=== PATIENT | male | born 1950 | race Caucasian/White ===

== ENCOUNTER 2024-11-01 14:18 | Emergency (ER) | payer OTHER ==
[~2024-11-01] VITALS: Ht 182.9 cm; Wt 86.0 kg
[2024-11-01 14:28] VITALS: BP 155/73; PULSE 68; RESP 18; TEMP 97.8; O2SAT 100
[2024-11-01 15:43] LABS: BASOPHILS % 0.8 % (0.0-2.0); EOSINOPHILS % 0.3 % (0.0-5.0); HEMOGLOBIN. 14.5 g/dL (14.0-18.0); LYMPHOCYTES % 30.9 % (20.0-50.0); MEAN CORPUSCULAR HEMOGLOBIN 29.7 pg (28.0-32.0); MEAN CORPUSCULAR HGB CONC 32.8 g/dL (31.0-37.0); MEAN CORPUSCULAR VOLUME 90.4 fL (80.0-94.0); MEAN PLATELET VOLUME 7.4 fl (7.4-10.4); MONOCYTES % 7.2 % (2.0-8.0); NEUTROPHILS % 60.8 % (40.0-76.0); PLATELET 288 x1000/uL (130-400); RED BLOOD CELL COUNT 4.87 mill/uL (4.7-6.1); RED CELL DISTRIBUTION WIDTH 13.1 % (11.6-14.6); WHITE BLOOD COUNT 7.1 x1000/uL (4.5-11.0)
[2024-11-01 15:53] LABS: CHLORIDE 105 mEq/L (98-107); POTASSIUM 4.1 mEq/L (3.5-5.1); SODIUM 139 mEq/L (136-145)
[2024-11-01 15:54] LABS: CALCIUM 9.8 mg/dL (8.7-10.4); CARBON DIOXIDE 26 mEq/L (21-32)
[2024-11-01 15:59] LABS: CREATININE 1.1 mg/dL (0.6-1.3); GLUCOSE 94 mg/dL (70-105); UREA NITROGEN BLOOD 15 mg/dL (9-23)
[2024-11-01 16:01] LABS: ALANINE AMINOTRANSFERASE 40 IU/L (10-49); ALBUMIN 4.4 g/dL (3.2-4.8); ASPARTATE AMINOTRANSFERASE 31 IU/L (<34); BILIRUBIN DIRECT 0.2 mg/dL (<=3.0); BILIRUBIN TOTAL 0.7 mg/dL (0.1-1.0); PROTEIN TOTAL 7.9 g/dL (6.0-8.3)
[2024-11-01] MEDS ORDERED: ONDANSETRON 4MG ODT PO ONE (18:00)
[2024-11-01] MEDS: ONDANSETRON 4MG ODT PO NR (19:46)
== END 2024-11-01 19:47 | disposition home or self-care (01) ==
LOC: ER 14:18
DX: K29.70 Gastritis, unspecified, without bleeding (principal); E78.00 Pure hypercholesterolemia, unspecified; K21.9 Gastro-esophageal reflux disease without esophagitis; I10 Essential (primary) hypertension; F19.90 Other psychoactive substance use, unspecified, uncomplicated; J45.909 Unspecified asthma, uncomplicated; Z88.0 Allergy status to penicillin
CPT/HCPCS: 99284; 74176; 80076; 80048; 83690; 85025; 36415; Q0162

== ENCOUNTER 2025-02-22 08:28 | Emergency (ER) | payer OTHER, MEDICAID ==
[~2025-02-22] VITALS: Ht 175.3 cm; Wt 72.0 kg
[2025-02-22 08:30] VITALS: O2SAT 99
[2025-02-22] MEDS: FAMOTIDINE 20MG TABLET PO ONE (08:46)
[2025-02-22] MEDS: ONDANSETRON 4MG ODT PO STA (08:46)
[2025-02-22] MEDS: MAGNESIUM/ALUMINUM HYDROXIDE/SIMETHICONE 30ML UDC PO STA (08:47)
[2025-02-22 09:40] LABS: BASOPHILS % 0.6 % (0.0-2.0); EOSINOPHILS % 0.3 % (0.0-5.0); HEMATOCRIT. 39.2 % (42.0-52.0); HEMOGLOBIN. 12.8 g/dL (14.0-18.0); LYMPHOCYTES % 21.9 % (20.0-50.0); MEAN CORPUSCULAR HEMOGLOBIN 29.3 pg (28.0-32.0); MEAN CORPUSCULAR HGB CONC 32.6 g/dL (31.0-37.0); MEAN CORPUSCULAR VOLUME 89.8 fL (80.0-94.0); MEAN PLATELET VOLUME 7.6 fl (7.4-10.4); MONOCYTES % 8.1 % (2.0-8.0); NEUTROPHILS % 69.1 % (40.0-76.0); PLATELET 257 x1000/uL (130-400); RED BLOOD CELL COUNT 4.36 mill/uL (4.7-6.1); RED CELL DISTRIBUTION WIDTH 13.6 % (11.6-14.6); WHITE BLOOD COUNT 9.3 x1000/uL (4.5-11.0)
[2025-02-22 09:49] LABS: INR 1.1; PROTHROMBIN TIME 11.5 sec (9.6-11.0)
[2025-02-22 09:56] LABS: CHLORIDE 105 mEq/L (98-107); POTASSIUM 4.1 mEq/L (3.5-5.1); SODIUM 141 mEq/L (136-145)
[2025-02-22 10:02] LABS: CREATININE 1.2 mg/dL (0.6-1.3); UREA NITROGEN BLOOD 10 mg/dL (9-23)
[2025-02-22 10:03] LABS: TROPONIN I HIGH SENSITIVITY 21 ng/L (3.0-53)
[2025-02-22 10:07] LABS: CARBON DIOXIDE 26 mEq/L (21-32)
[2025-02-22 10:08] LABS: CALCIUM 9.7 mg/dL (8.7-10.4)
[2025-02-22 10:13] LABS: GLUCOSE 107 mg/dL (70-105)
[2025-02-22 10:19] LABS: ALANINE AMINOTRANSFERASE 26 IU/L (10-49); ALBUMIN 3.8 g/dL (3.2-4.8); ASPARTATE AMINOTRANSFERASE 27 IU/L (<34); BILIRUBIN DIRECT 0.3 mg/dL (<=3.0); BILIRUBIN TOTAL 1.1 mg/dL (0.1-1.0); PROTEIN TOTAL 7.3 g/dL (6.0-8.3)
[2025-02-22 12:23] VITALS: BP 179/81; PULSE 70; RESP 15; TEMP 36.8; O2SAT 100
== END 2025-02-22 12:37 | disposition short-term general hospital (02) ==
LOC: ER 08:28 → CANBEDREQ 10:36 → ER 12:37
DX: J90 Pleural effusion, not elsewhere classified (principal); J45.909 Unspecified asthma, uncomplicated; E78.00 Pure hypercholesterolemia, unspecified; I10 Essential (primary) hypertension; Z88.0 Allergy status to penicillin
CPT/HCPCS: 99291; 74176; 80076; 80048; 83690; 85025; 85610; 84484; 36415; 93005; Q0162

== ENCOUNTER 2025-07-05 07:27 | Emergency (ER) | payer MEDICAID, OTHER ==
[~2025-07-05] VITALS: Ht 170.2 cm; Wt 82.0 kg
[2025-07-05 07:30] VITALS: O2SAT 98
[2025-07-05 08:07] LABS: BASOPHILS % 0.6 % (0.0-2.0); EOSINOPHILS % 0.8 % (0.0-5.0); HEMATOCRIT. 37.1 % (42.0-52.0); HEMOGLOBIN. 12.6 g/dL (14.0-18.0); LYMPHOCYTES % 25.5 % (20.0-50.0); MEAN PLATELET VOLUME 7.2 fl (7.4-10.4); MONOCYTES % 7.7 % (2.0-8.0); NEUTROPHILS % 65.4 % (40.0-76.0); PLATELET 260 x1000/uL (130-400); RED BLOOD CELL COUNT 4.21 mill/uL (4.7-6.1); RED CELL DISTRIBUTION WIDTH 13.4 % (11.6-14.6)
[2025-07-05 08:22] LABS: CREATININE 1.2 mg/dL (0.6-1.3); UREA NITROGEN BLOOD 25 mg/dL (9-23)
[2025-07-05 08:24] LABS: ASPARTATE AMINOTRANSFERASE 30 IU/L (<34); BILIRUBIN DIRECT 0.2 mg/dL (<=3.0); BILIRUBIN TOTAL 0.9 mg/dL (0.1-1.0); PROTEIN TOTAL 7.1 g/dL (6.0-8.3)
[2025-07-05] MEDS: ONDANSETRON HCL 4MG/2ML INJ IV ONE (09:23)
[2025-07-05] MEDS: MORPHINE SULFATE 4 MG/ML INJ (FOR IV/IM USE) IV ONE (09:23)
[2025-07-05 09:58] LABS: CLARITY URINE CLEAR (CLEAR); COLOR URINE YELLOW (YELLOW); GLUCOSE URINE NEGATIVE (NEGATIVE); KETONES URINE NEGATIVE (NEGATIVE); LEUKOCYTE ESTERASE URINE NEGATIVE (NEGATIVE); NITRITE URINE NEGATIVE (NEGATIVE); OCCULT BLOOD URINE NEGATIVE (NEGATIVE); PH URINE 5.0 (4.5-8.0); PROTEIN URINE NEGATIVE (NEGATIVE); SPECIFIC GRAVITY URINE 1.025 (1.005-1.030); UROBILINOGEN URINE 0.2 E.U./dL (0.2-1.0)
[2025-07-05] MEDS: KETOROLAC 30MG/ML VIAL IV ONE (10:28)
[2025-07-05] MEDS ORDERED: HYDROCODONE/ACETAMINOPHEN 5/325MG TABLET PO PRN (13:30)
[2025-07-05] MEDS ORDERED: ZOLPIDEM TARTRATE 5MG TABLET PO PRN (13:30)
[2025-07-05] MEDS ORDERED: CLONIDINE 0.1MG TABLET PO PRN (13:30)
[2025-07-05] MEDS ORDERED: ACETAMINOPHEN 325MG TABLET PO PRN (13:30)
[2025-07-05] MEDS ORDERED: MORPHINE SULFATE 2 MG/ML INJ (NOT FOR IM USE) IV PRN (13:30)
[2025-07-05 13:44] VITALS: PULSE 80; TEMP 36.6; O2SAT 100
[2025-07-05] MEDS ORDERED: NALOXONE HCL 0.4MG/ML VIAL IV PRN (13:45)
[2025-07-05 13:50] VITALS: BP 162/76; RESP 22
[2025-07-05] MEDS: LIDOCAINE 5% PATCH TOP SCH (13:50)
[2025-07-05] MEDS: SODIUM CHLORIDE 0.9% 1,000 ML IV SCH (13:50)
[2025-07-05] MEDS: MAGNESIUM/ALUMINUM HYDROXIDE/SIMETHICONE 30ML UDC PO PRN (13:51)
[2025-07-05] MEDS: ONDANSETRON HCL 4MG/2ML INJ IV PRN (13:51)
[2025-07-05] MEDS ORDERED: ENOXAPARIN 40MG/0.4ML SYR SUBCUT SCH (14:00)
[2025-07-05] MEDS ORDERED: GABAPENTIN 300MG CAPSULE PO SCH (14:00)
[2025-07-06] MEDS ORDERED: PANTOPRAZOLE SODIUM 40 MG/VIAL IV SCH (09:00)
[2025-07-06 10:26] LABS: *AMPHETAMINES SCREEN URINE NEGATIVE (NEGATIVE); *BARBITURATES SCREEN URINE NEGATIVE (NEGATIVE); *BENZODIAZEPINES SCREEN URINE NEGATIVE (NEGATIVE); *COCAINE SCREEN URINE NEGATIVE (NEGATIVE); CANNABINOID URINE SCREEN PRESUMPTIVE POSITIVE (NEGATIVE); ECSTASY MDMA SCREEN URINE NEGATIVE (NEGATIVE); METHADONE URINE SCREEN NEGATIVE (NEGATIVE); OPIATES URINE SCREEN NEGATIVE (NEGATIVE); PHENCYCLIDINE URINE SCREEN NEGATIVE (NEGATIVE)
== END 2025-07-05 13:59 | disposition short-term general hospital (02) ==
LOC: ER 07:27 → CANBEDREQ 12:03 → ER 13:59
DX: M54.9 Dorsalgia, unspecified (principal); E78.00 Pure hypercholesterolemia, unspecified; J45.909 Unspecified asthma, uncomplicated; I10 Essential (primary) hypertension; Z88.0 Allergy status to penicillin; F19.90 Other psychoactive substance use, unspecified, uncomplicated; K21.9 Gastro-esophageal reflux disease without esophagitis; Z79.899 Other long term (current) drug therapy
CPT/HCPCS: 99285; 96374; 96375; 96361; 80076; 80305; 80048; 83690; 85025; 36415; 72100; 96376; 81003; J1885; J2405; J2270